=== PATIENT | female | born 1990 | race Caucasian/White ===

== ENCOUNTER 2019-07-12 22:18 | Emergency (ER) | payer MEDICAID ==
[~2019-07-12] VITALS: Ht 157.5 cm; Wt 65.3 kg
--- NOTE | 2019-07-12 22:28 | NUR ---
at bedside for hx and physcical
[2019-07-12] MEDS ORDERED: ONDANSETRON 4 MG/2 ML VIAL ONE (22:40)
[2019-07-12] MEDS ORDERED: HYDROMORPHONE 1 MG/1 ML DISP.SYRIN ONE (22:40)
[2019-07-12] MEDS ORDERED: HYDROMORPHONE 1 MG/1 ML DISP.SYRIN IV ONE (22:45)
[2019-07-12] MEDS ORDERED: ONDANSETRON 4 MG/2 ML VIAL IV ONE (22:45)
[2019-07-12] MEDS ORDERED: IV NORMAL SALINE 1000 ML BAG IV ONE (22:45)
[2019-07-12 23:00] LABS: BASOPHILS # (AUTO) 0.1 K/uL (0.0-8.0); BASOPHILS % (AUTO) 1.1 % (0.0-2.0); EOSINOPHILS # (AUTO) 0.1 K/uL (0.0-0.7); EOSINOPHILS % (AUTO) 1.5 % (0.0-7.0); HEMATOCRIT 37.9 % (31.2-41.9); HEMOGLOBIN 12.5 g/dL (10.9-14.3); LYMPHOCYTES % (AUTO) 38.4 % (20.5-51.5); MEAN CORPUSCULAR HEMOGLOBIN 27.6 uug (24.7-32.8); MEAN CORPUSCULAR HGB CONC 33 g/dL (32.3-35.6); MEAN CORPUSCULAR VOLUME 83.7 fL (75.5-95.3); MONOCYTES # (AUTO) 0.4 K/uL (2.0-10.0); MONOCYTES % (AUTO) 5.3 % (0.0-11.0); NEUTROPHILS # (AUTO) 4.1 K/uL (1.8-8.9); NEUTROPHILS % (AUTO) 53.7 % (38.5-71.5); PLATELET COUNT (AUTO) 140 K/uL (179-408); RED BLOOD CELL COUNT(AUTO) 4.52 MIL/uL (3.63-4.92); WHITE BLOOD COUNT (AUTO) 7.7 K/uL (3.8-11.8)
[2019-07-12 23:03] LABS: *BILIRUBIN,URIN NEGATIVE (NEGATIVE); *CLARITY,URINE CLEAR (CLEAR); *COLOR,URINE YELLOW (YELLOW); *KETONES,URINE NEGATIVE (NEGATIVE); *UROBILINOGEN,URINE 0.2 E.U./dl (NORMAL); LEUKOCYTE ESTERASE ,URINE NEGATIVE (NEGATIVE); NITRITE, URINE NEGATIVE (NEGATIVE); PH,URINE 6.5 (5.0-8.0); UGLUCOSE NEGATIVE (NEGATIVE)
[2019-07-12 23:09] LABS: CARBON DIOXIDE 26 mmol/L (21-32); CHLORIDE 107 mmol/L (98-107); CREATININE 0.5 mg/dL (0.6-1.3); GLUCOSE 103 mg/dL (74-106); POTASSIUM 3.9 mmol/L (3.5-5.1); UREA NITROGEN, BLOOD 14 mg/dL (7-18)
[2019-07-12 23:10] LABS: *BLOOD, URINE TRACE (NEGATIVE)
[2019-07-12 23:15] LABS: BACTERIA,URINE NONE SEEN /HPF (NONE SEEN); RBC,URINE 0-3 /HPF (0-3)
[2019-07-12 23:15] LABS: ALANINE AMINOTRANSFERASE 16 U/L (14-59); ALKALINE PHOSPHATASE 75 U/L (50-136); ASPARTATE AMINOTRANSFERASE 12 U/L (15-37); BILIRUBIN,DIRECT 0.1 mg/dL (0.0-0.2); BILIRUBIN,TOTAL 0.2 mg/dL (0.2-1.0); LIPASE 166 U/L (73-393); TOTAL PROTEIN, SERUM 7.5 g/dL (6.4-8.2)
[2019-07-12 23:16] LABS: MUCUS,URINE MANY /LPF (0-FEW); SQUAMOUS EPITHELIAL CELL,UR MODERATE /HPF (NONE SEEN)
--- NOTE | 2019-07-12 23:54 | NUR ---
PT NAD REQUESTED TO HOLD OFF ON MORPHINE AND ZOFRAN AT THIS TIME UNTIL CT SCAN RESULTS ARE BACK ACCOMPANIED BY ARIN- RADIOLOGY DOWN FOR CT VIA GURNEY G20 L AC SALINE LOCK
--- NOTE | 2019-07-13 00:08 | NUR ---
BACK FROM CT ACC BY ARIN- RADIOLOGY VIA KIMMIE PT REQUESTED PAIN MEDS AND ZOFRAN AT THIS TIME
--- NOTE | 2019-07-13 00:16 | NUR ---
(RADIOLOGY) RENAISSANCE ON THE PHONE WITH ANALY PINEDO AT BEDSIDE FOR UPDATE
--- NOTE | 2019-07-13 00:31 | NUR ---
IV SITE DC, DRESSED Patient discharged to home in stable conditon. Written and verbal after care instructions given. Patient verbalizes understanding of instructions. AMBULATORY W/ STABLE GAIT ALL BELONGINGS W/ PT
[2019-07-13 01:01] VITALS: BP 101/65
== END 2019-07-13 00:40 | disposition home or self-care (01) ==
LOC: ER 22:20
DX: R10.31 Right lower quadrant pain (principal)
CPT/HCPCS: 36415; 74176; 80048; 80076; 81000; 81001; 83690; 84702; 85025; 87077; 87086; 96374; 96375; 99284; J1170; J2405; A4663; J7030